=== PATIENT | female | born 1990 | race African-American/Black ===

== ENCOUNTER 2017-07-24 11:44 | Emergency (ER) | payer SELFPAY ==
[~2017-07-24] VITALS: Ht 175.3 cm; Wt 70.3 kg
[2017-07-24 13:34] LABS: SOURCE URINE
[2017-07-24 13:38] LABS: APPEARANCE CLEAR ((CLEAR)); BILIRUBIN NEGATIVE; BLOOD NEGATIVE; COLOR YELLOW ((YELLOW)); GLUCOSE (STRIP) NEGATIVE; KETONES NEGATIVE; LEUKOCYTES NEGATIVE; NITRITE NEGATIVE; PROTEIN (STRIP) NEGATIVE; SPECIFIC GRAVITY 1.023 (1.000-1.030); UCUL ADDED? NO; UROBILINOGEN 0.2 MG/DL (0.2-1.0)
[2017-07-24 14:11] LABS: HEMATOCRIT 36.8 % (36.0-46.0); HEMOGLOBIN 12.2 G/DL (11.9-15.5); MCH 29.6 PG (29.0-34.0); MCHC 33.2 G/DL (30.0-36.0); MCV 89.3 FL (83-99); PLATELET COUNT 335 K/uL (156-360); RBC DIS.WIDTH-CV 12.2 % (11.8-14.6); RBC DIS.WIDTH-SD 40.1 % (39-53); RED BLOOD COUNT 4.12 M/uL (3.80-5.20); WHITE BLOOD COUNT 4.8 K/uL (4.1-10.2)
[2017-07-24 14:24] LABS: ALBUMIN 4.1 g/dL (3.2-4.8); CHLORIDE 106 mEq/L (99-109); POTASSIUM 4.4 mEq/L (3.7-5.4); SODIUM 141 mEq/L (136-147)
[2017-07-24 14:27] LABS: GLUCOSE 92 mg/dL (70-99); TOTAL PROTEIN 6.7 g/dL (6.4-8.3)
[2017-07-24 14:28] LABS: TOTAL BILIRUBIN 0.3 mg/dL (0.0-1.0)
[2017-07-24 14:30] LABS: ALKALINE PHOSPHATASE 48 IU/L (3-129); CREATININE 0.7 mg/dL (0.6-1.3); GFR ESTIMATE (CALCULATED) > 59 mL/min/
[2017-07-24 14:31] LABS: UREA NITROGEN (BUN) 13 mg/dL (9-23)
[2017-07-24 14:32] LABS: AST (GOT) 16 IU/L (2-34)
[2017-07-24 14:33] LABS: ALT (GPT) 11 IU/L (3-49)
[2017-07-24 14:34] LABS: LIPASE 21 U/L (1.0-51.0)
[2017-07-24 14:39] LABS: QUANTITATIVE HCG < 4.0 MIU/ML
[2017-07-24] MEDS ORDERED: COLACE100 MG PO (17:09)
[2017-07-24] MEDS ORDERED: FLAGYL500 MG PO (17:09)
[2017-07-24] MEDS ORDERED: PERCOCET 5/31 TABLET PO (17:09)
[2017-07-24 17:40] VITALS: BP 135/69
[2017-07-26 13:40] LABS: CHLAMYDIA TRACHOMATIS NEGATIVE; NEISSERIA GONORRHOEAE POSITIVE
== END 2017-07-24 17:41 | disposition home or self-care (01) ==
LOC: EME 11:44
PROVIDERS: Physician Assistant
DX: K63.9 Disease of intestine, unspecified (principal); A74.9 Chlamydial infection, unspecified; A54.9 Gonococcal infection, unspecified; K59.00 Constipation, unspecified; R10.31 Right lower quadrant pain; M79.605 Pain in left leg; M79.89 Other specified soft tissue disorders; Z87.442 Personal history of urinary calculi; F17.200 Nicotine dependence, unspecified, uncomplicated
CPT/HCPCS: 74176; 80053; 81003; 83690; 84702; 85027; 87491; 87591; 93971; 99281; 99284; J0696